=== PATIENT | male | born 1940 | race Caucasian/White ===

== ENCOUNTER 2017-05-29 19:07 | Inpatient (IN) | payer MEDICARE ==
[~2017-05-29] VITALS: Ht 182.9 cm; Wt 100.0 kg
[2017-05-29] VITALS (8 sets, daily range): BP systolic 173–211; BP diastolic 85–110; PULSE 60–77; RESP 13–18; TEMP 96.8–98.2; O2SAT 96–100
[2017-05-29] MEDS ORDERED: IODIXANOL 320 MG/ML 10 ML VIAL (for Rad CT) IVCONTRAST ONE (19:08)
[2017-05-29] MEDS ORDERED: SODIUM CHLOR 0.9% 1000 ML INJ 1,000 ML IV ONE (19:22)
[2017-05-29 19:38] LABS: AUTOMATED NEUTROPHIL # 5.1 TH/MM3 (1.8-7.7); BASOPHIL % 0.4 % (0.0-2.0); EOSINOPHIL # 0.1 TH/MM3 (0-0.4); EOSINOPHIL % 1.5 % (0.0-4.0); HEMATOCRIT 36.7 % (39.0-51.0); HEMOGLOBIN 12.3 GM/DL (13.0-17.0); LYMPH % 18.8 % (9.0-44.0); LYMPHOCYTE # 1.3 TH/MM3 (1.0-4.8); MEAN CELL VOLUME 94.5 FL (80.0-100.0); MEAN CORPUSCULAR HEMOGLOBIN 31.6 PG (27.0-34.0); MEAN CORPUSCULAR HGB CONC 33.4 % (32.0-36.0); MEAN PLATELET VOLUME 8.2 FL (7.0-11.0); MONO % 6.7 % (0.0-8.0); MONOCYTE # 0.5 TH/MM3 (0-0.9); NEUT % 72.6 % (16.0-70.0); PLATELET COUNT 168 TH/MM3 (150-450); RED BLOOD COUNT 3.88 MIL/MM3 (4.50-5.90); RED CELL DISTRIBUTION WIDTH 15.1 % (11.6-17.2)
--- NOTE | 2017-05-29 19:39 | RADRPT ---
EXAM DATE/TIME: 05/29/2017 19:21 [facility] COMPARISON: No previous studies available for comparison. INDICATIONS : Trouble with speech RADIATION DOSE: 56.35 CTDIvol (mGy) MEDICAL HISTORY : Unable to obtain SURGICAL HISTORY : Unable to obtain ENCOUNTER: Initial ACUITY: 1 day PAIN SCALE: 0/10 LOCATION: cranial TECHNIQUE: Multiple contiguous axial images were obtained of the head. Using automated exposure control and adj ustment of the mA and/or kV according to patient size, radiation dose was kept as low as reasonably a chievable to obtain optimal diagnostic quality images. DICOM format image data is available electro nically for review and comparison. FINDINGS: Diffuse cerebral atrophy is noted. Severe periventricular and subcortical white matter small vessel i schemic changes are noted bilaterally. There is no acute infarct, acute hemorrhage, mass effect or ex tra-axial fluid collections. The findings were discussed with Dr. Leon at 7:35 PM on 05/29/17. CONCLUSION: Severe periventricular and subcortical white matter small vessel ischemic changes doug aterally. Diffuse cerebral atrophy. No acute infarct, acute hemorrhage, mass effect or extra axial fl uid collections. The findings were discussed with Dr. Leon at 7:35 PM on 05/29/17. Rhys Wall MD on May 29, 2017 at 19:33 Board Certified Radiologist. This report was verified electronically.
--- NOTE | 2017-05-29 19:47 | PD ---
HPI Chief Complaint: Stroke Alert Time Seen by Provider: 19:46 Travel History International Travel<30 days: No Contact w/Intl Traveler<30days: No Traveled to known affect area: No History of Present Illness HPI 76-year-old male presents to the emergency department by EMS transport from home as noted just prior to EMS arrival while patient was sitting having dinner around 6:30-6:40 PM that patient was staring and was not following commands or speaking and then developed garbled speech. immediately called 911. Upon EMS arrival patient was already showing improvement of speech and following commands. states she did not notice any facial droop or obvious upper or lower extremity weakness and no report of paresthesia. According to the , patient has had several TIAs in the past, has CAD with multiple stents, as well as, PAD with lower extremity stents, as well as, renal artery stenosis with plan for stenting and aortic valve disease with plan for valve replacement. Patient is under the care of providers/physicians at [facility]. Patient's superior court clerk is Dr. Chacon. Patient has renal insufficiency and is followed by cupola melter Dr Murillo. Patient here states that his speech is improved. Perhaps only slight slurring of speech. Patient denies headache visual disturbance difficulty swallowing does not notice any facial numbness or weakness does not report any upper or lower extremity numbness or weakness denies any chest pain or palpitations also denies any shortness of breath. Patient denies any nausea and has had no vomiting. Patient does not report any neck jaw mid scapular abdomen or upper extremity numbness tingling weakness or pain. Patient is prescribed Plavix and aspirin. at bedside at this time reports patient's speech is nearly back to baseline normal. also reports March 2017 patient was hospitalized at [facility] for vomiting and dizziness with extensive neurologic workup cardiac evaluation and nephrology evaluation and had several imaging studies of the neck and brain that were reportedly all within normal. Patient's reports that she is her spouse is power of criminal defense attorney. PFSH Past Medical History Narrative Medical TIA, CAD with several coronary stents PAD with lower extremity stents carotid disease aortic valve disease hypertension and diabetes; no tobacco use; nursing notes reviewed Cardiovascular Problems: Yes (HTN, BAD AORTIC VALVE) Diabetes: Yes Social History Tobacco Use: No Allergies-Medications (Allergen,Severity, Reaction): Coded Allergies: No Known Allergies (Verified Allergy, Unknown, 05/29/17) MRI PRECAUTION (Verified Adverse Reaction, Severe, Pacemaker, not Biotronik or Medtronic. 05/30/17 LRS, 05/30/17) Reported Meds & Prescriptions Reported Meds & Active Scripts Active Reported Gabapentin 300 Mg Cap 300 Mg PO HS Nitrostat SL (Nitroglycerin) 0.4 Mg Subl 0.4 Mg SL DIRECTED PRN 1 tablet under the tongue as needed for chest pain. Repeat every 5 minutes for a total of 3 DOSES or call 911 if NO relief. Aspirin 325 Mg Tab 325 Mg PO DAILY Cetirizine (Cetirizine HCl) 10 Mg Chew 10 Mg CHEW DAILY Meclizine (Meclizine HCl) 25 Mg Tab 25 Mg PO DIRECTED PRN Lisinopril 20 Mg Tab 20 Mg PO DAILY Isosorbide Mononitrate 20 Mg Tab 60 Mg PO DAILY Take 2 doses 7 hours apart. Pantoprazole (Pantoprazole Sodium) 40 Mg Tab 40 Mg PO DAILY Ranexa ER 12 HR (Ranolazine) 500 Mg Tab 500 Mg PO DAILY Lipitor (Atorvastatin Calcium) 40 Mg Tab 40 Mg PO HS Glimepiride 2 Mg Tab 2 Mg PO DAILY Take with breakfast or first main meal Plavix (Clopidogrel Bisulfate) 75 Mg Tab 75 Mg PO DAILY Narrative Medication Plavix, aspirin Review of Systems Except as stated in HPI: all other systems reviewed are Neg General / Constitutional: No: Fever Eyes: No: Visual changes HENT: No: Headaches, Lightheadedness Cardiovascular: No: Chest Pain or Discomfort, Palpitations, Syncope Respiratory: No: Shortness of Breath Gastrointestinal: No: Nausea, Vomiting, Abdominal Pain Genitourinary: No: Flank Pain Musculoskeletal: No: Weakness, Pain Skin: No Rash Neurologic: Positive: Slurred Speech, No: Weakness, Dizziness, Syncope, Focal Abnormalities, Coordination Problem, Headache, Change in Mentation, Paresthesia , Seizures Psychiatric: No: Anxiety Hematologic/Lymphatic: No: Lymph Node Enlargement Physical Exam Narrative GENERAL: Well-developed well-nourished male in no acute distress no respiratory distress resting supine on exam stretcher; GCS 15 SKIN: Warm and dry. HEAD: Atraumatic. Normocephalic. EYES: Pupils equal and round. Extraocular muscles intact. No scleral icterus. No injection or drainage. ENT: No nasal bleeding or discharge. Mucous membranes pink and moist. NECK: Trachea midline. No JVD. Supple no meningismus. CARDIOVASCULAR: Regular rate and rhythm. 3/6 holosystolic murmur. RESPIRATORY: No accessory muscle use. Clear to auscultation. Breath sounds equal bilaterally. GASTROINTESTINAL: Abdomen soft, non-tender, nondistended. Hepatic and splenic margins not palpable. MUSCULOSKELETAL: Extremities without clubbing, cyanosis, or edema. No obvious deformities. Radial pulses 2+ to palpation bilaterally dorsalis pedis pulses 2 + to palpation bilaterally NEUROLOGICAL: Awake and alert. GCS 15. No obvious cranial nerve deficits, no facial droop. Motor grossly within normal limits. Five out of 5 muscle strength in the arms and legs. No pronator drift. No limb ataxia. Slight slurring of speech. PSYCHIATRIC: Appropriate mood and affect; insight and judgment normal. Data Data Last Documented VS Vital Signs Date Time Temp Pulse Resp B/P (MAP) Pulse Ox O2 Delivery O2 Flow Rate FiO2 05/29/17 20:48 60 15 173/85 (114) 97 Room Air 05/29/17 20:26 21 05/29/17 19:23 98.2 Orders Orders Activity Bed Rest (05/29/17 ) Electrocardiogram (05/29/17 ) I-Stat Profile (05/29/17 19:22) Prothrombin Time / Inr (Pt) (05/29/17 19:22) Act Partial Throm Time (Ptt) (05/29/17 19:22) Complete Blood Count With Diff (05/29/17 19:22) Fibrinogen (05/29/17 19:22) Creatine Kinase (Cpk) (05/29/17 19:22) Troponin I (05/29/17 19:22) Ua Includes Microscopic (05/29/17 19:22) Drug Screen, Random Urine (05/29/17 19:22) Type And Screen (05/29/17 19:22) Ct Brain W/O Iv Contrast(Rout) (05/29/17 ) Cta Brain W Iv Contrast W 3d (05/29/17 19:22) Cta Neck W Iv Contrast W 3d (05/29/17 19:22) Consult Neurology (05/29/17 ) Blood Glucose (05/29/17 19:22) Ecg Monitoring (05/29/17 19:22) Neuro Checks Q2HX12,Q4H (05/29/17 19:22) Nursing Bedside Swallow Assess .ONCE (05/29/17 19:22) Iv Access Insert/Monitor (05/29/17 19:22) NPO (05/29/17 19:22) Oximetry (05/29/17 19:22) Resp Oxygen Nc Stroke (05/29/17 ) Sodium Chlor 0.9% 1000 Ml Inj (Ns 1000 M (05/29/17 19:22) Cath For Specimen (05/29/17 19:22) Chest, Single Ap (05/29/17 ) Iodixanol 320 Inj (Rad Ct) (Visipaque 32 (05/29/17 19:08) Sodium Chlor 0.9% 1000 Ml Inj (Ns 1000 M (05/29/17 20:30) Head Of Bed (05/29/17 20:16) (Hub Use Only)Inp Phy Cons/Ref (05/29/17 ) Heparin-D5w 25,000 U/250 Ml (Heparin-D5w (05/29/17 21:00) Cbc No Diff, Includes Plts (06/01/17 06:00) Admit Order (Ed Use Only) (05/29/17 ) Ring Stamper / Telemetry LORELEI.Q8H (05/29/17 21:16) Activity Bed Rest (05/29/17 21:16) Notify Dr: Other (05/29/17 21:16) ^ For Further Orders (05/29/17 21:16) Labs Laboratory Tests Test 05/29/17 19:15 White Blood Count 7.0 TH/MM3 Red Blood Count 3.88 MIL/MM3 Hemoglobin 12.3 GM/DL Bedside Hemoglobin 12.6 G/DL Hematocrit 36.7 % Bedside Hematocrit 37.0 % Mean Corpuscular Volume 94.5 FL Mean Corpuscular Hemoglobin 31.6 PG Mean Corpuscular Hemoglobin Concent 33.4 % Red Cell Distribution Width 15.1 % Platelet Count 168 TH/MM3 Mean Platelet Volume 8.2 FL Neutrophils (%) (Auto) 72.6 % Lymphocytes (%) (Auto) 18.8 % Monocytes (%) (Auto) 6.7 % Eosinophils (%) (Auto) 1.5 % Basophils (%) (Auto) 0.4 % Neutrophils # (Auto) 5.1 TH/MM3 Lymphocytes # (Auto) 1.3 TH/MM3 Monocytes # (Auto) 0.5 TH/MM3 Eosinophils # (Auto) 0.1 TH/MM3 Basophils # (Auto) 0.0 TH/MM3 CBC Comment DIFF FINAL Differential Comment Prothrombin Time 12.0 SEC Prothromb Time International Ratio 1.2 RATIO Activated Partial Thromboplast Time 28.6 SEC Fibrinogen 413 mg/dL Bedside Sodium 141 MMOL/L Bedside Potassium 3.9 MMOL/L Bedside Chloride 105 MMOL/L Bedside Blood Urea Nitrogen 29 MG/DL Bedside Creatinine 2.0 MG/DL Bedside Glucose 107 MG/DL Total Creatine Kinase 66 U/L Troponin I 0.02 NG/ML MDM Medical Decision Making Medical Screen Exam Complete: Yes Emergency Medical Condition: Yes Medical Record Reviewed: Yes Interpretation(s) EKG normal sinus rhythm rate [address] elevation or ectopy or injury pattern CBC & BMP Diagram 05/29/17 19:15 Vital Signs Date Time Temp Pulse Resp B/P (MAP) Pulse Ox O2 Delivery O2 Flow Rate FiO2 05/29/17 20:48 60 15 173/85 (114) 97 Room Air 05/29/17 20:26 96 21 05/29/17 20:20 68 13 188/97 (127) 98 Room Air 05/29/17 20:09 68 13 211/110 (143) 98 Room Air 05/29/17 19:33 67 16 197/93 (127) 97 Room Air 05/29/17 19:32 17 98 Room Air 05/29/17 19:30 77 17 98 Room Air 05/29/17 19:23 98.2 77 17 199/91 (127) 98 CT brain w/o: CONCLUSION: Severe periventricular and subcortical white matter small vessel ischemic changes bilaterally. Diffuse cerebral atrophy. No acute infarct, acute hemorrhage, mass effect or extra axial fluid collections. The findings were discussed with Dr. Leon at 7:35 PM on 05/29/17. Rhys Wall MD on May 29, 2017 at 19:33 Board Certified Radiologist. This report was verified electronically. CTA brain: CONCLUSION: No acute disease. Rhys Wall MD on May 29, 2017 at 19:52 Board Certified Radiologist. This report was verified electronically. CTA neck: CONCLUSION: 1. Severe focal stenosis involving the left mid common carotid artery. 2. Bilateral carotid stents are widely patent. Rhys Wall MD on May 29, 2017 at 20:17 Board Certified Radiologist. This report was verified electronically. Differential Diagnosis Stroke alert, CVA, TIA, arrhythmia, ICH, uncontrolled hypertension, ACS Narrative Course @ 19:12 NIHSS: 1 @ 19:[address] @ 19:[address] Leon @ 19:46 patient has returned from CT; NIHSS: 0 @ 8:22 LUE: 188/91; RUE: 185/86; chronic LBP 6-7/[address] Leon notified of CTa results --no plavix, no aspirin, start heparin infusion, no bolus; hold bp meds for bp less than 200/100, am neuro consult, MRI brain w/o contrast Physician Communication Physician Communication discussed with Neurologist Dr Leon not tPA candidate may require heparinization add CTA brain/neck to CT brain w/o; @ 7:[address] Wall neg CT brain w/o and has shred this already with Dr Leon proceeding with CTA Diagnosis Primary Impression: TIA (transient ischemic attack) Qualified Codes: G45.9 - Transient cerebral ischemic attack, unspecified Additional Impressions: Renal insufficiency History of coronary artery disease Admitting Information Admitting Physician Requests: Admit Isha Ventura MD May 29, 2017 19:47
[2017-05-29 19:53] LABS: INTERNATIONAL NORMALIZED RATIO 1.2 RATIO
--- NOTE | 2017-05-29 19:56 | RADRPT ---
EXAM DATE/TIME: 05/29/2017 19:34 [facility] COMPARISON: No previous studies available for comparison. INDICATIONS : Trouble with speech IV CONTRAST: 50 cc Visipaque (iodixanol) IV ; Cumulative dose for multiple exams. RADIATION DOSE: 10.92 CTDIvol (mGy) ; Combined studies MEDICAL HISTORY : Unable to obtain SURGICAL HISTORY : Unable to obtain ENCOUNTER: Initial ACUITY: 1 day PAIN SCALE: 0/10 LOCATION: Cta head TECHNIQUE: Volumetric scanning was performed using a multi-row detector CT scanner. The data was post processed with a variety of visualization algorithms including full volume maximum intensity projection, multi -planar sliding thin slab reformation, curved planar reformation, and surface rendering techniques. Using automated exposure control and adjustment of the mA and/or kV according to patient size, radiat ion dose was kept as low as reasonably achievable to obtain optimal diagnostic quality images. DICO M format image data is available electronically for review and comparison. FINDINGS: There is excellent visualization of the major intracranial arteries out to the second-order branch ve ssels. There is no evidence for aneurysm, vessel truncation or stenosis, and no evidence for vascula r malformation. There is a patent right posterior communicating artery. CONCLUSION: No acute disease. Rhys Wall MD on May 29, 2017 at 19:52 Board Certified Radiologist. This report was verified electronically.
[2017-05-29 20:05] LABS: TROPONIN I 0.02 NG/ML (0.02-0.05)
[2017-05-29] MEDS ORDERED: PANT40TA3 PO (20:08)
[2017-05-29] MEDS ORDERED: NITR0.4S SL (20:08)
[2017-05-29] MEDS ORDERED: GLIM2TAB PO (20:08)
[2017-05-29] MEDS ORDERED: ASPI-183 PO (20:08)
[2017-05-29] MEDS ORDERED: MECL-62 PO (20:08)
[2017-05-29] MEDS ORDERED: GABA300C5 PO (20:08)
[2017-05-29] MEDS ORDERED: CETI10CH CHEW (20:08)
[2017-05-29] MEDS ORDERED: LISI-515 PO (20:08)
[2017-05-29] MEDS ORDERED: LIPI40TA PO (20:08)
[2017-05-29] MEDS ORDERED: RANO500 PO (20:08)
[2017-05-29] MEDS ORDERED: ISOS20TA PO (20:08)
[2017-05-29] MEDS ORDERED: PLAV75TA29 PO (20:08)
--- NOTE | 2017-05-29 20:24 | RADRPT ---
EXAM DATE/TIME: 05/29/2017 19:34 [facility] COMPARISON: No previous studies available for comparison. INDICATIONS : Trouble with speech IV CONTRAST: 50 cc Visipaque (iodixanol) IV ; Cumulative dose for multiple exams. RADIATION DOSE: 10.92 CTDIvol (mGy) ; Combined studies MEDICAL HISTORY : Unable to obtain SURGICAL HISTORY : Unable to obtain ENCOUNTER: Initial ACUITY: 1 day PAIN SCALE: 0/10 LOCATION: Cta neck Elevated flow velocities and ICA/CCA ratios have been found to correlate with increased degrees of vessel stenosis, calculated as percentage of diameter relative to a normal segment of distal ICA/CCA. TECHNIQUE: Volumetric scanning was performed using a multirow detector CT scanner. The data was post processed with a variety of visualization algorithms including full-volume maximum intensity projection, multip lanar sliding thin-slab reformation, curved-planar reformation, and surface-rendering techniques. Us ing automated exposure control and adjustment of the mA and/or kV according to patient size, radiatio n dose was kept as low as reasonably achievable to obtain optimal diagnostic quality images. DICOM f ormat image data is available electronically for review and comparison. FINDINGS: AORTIC ARCH: There is a three-vessel origin of the great vessels from the aorta. No evidence of ostial narrowing. RIGHT CAROTID: The common carotid artery is intact. The carotid bulb has a normal configuration without ulceration o r narrowing. Right-sided carotid stent is noted within the internal carotid artery without recurrent stenosis. The external carotid artery is intact. LEFT CAROTID: There appears to be a severe focal stenosis within the left mid common carotid artery. Left-sided car otid stent is noted within the proximal internal carotid artery with no recurrent stenosis. The carot id bulb has a normal configuration without ulceration or narrowing. The external carotid artery is i ntact. VERTEBRALS: The vertebral arteries have a symmetric diameter. No stenotic lesions are seen. CONCLUSION: 1. Severe focal stenosis involving the left mid common carotid artery. 2. Bilateral carotid stents are widely patent. Rhys Wall MD on May 29, 2017 at 20:17 Board Certified Radiologist. This report was verified electronically.
[2017-05-29] MEDS: SODIUM CHLOR 0.9% 1000 ML INJ 1,000 ML IV SCH (20:30)
[2017-05-29] MEDS ORDERED: HEPARIN-D5W 25,000 U/250 ML 250 ML IV PRN (21:00)
--- NOTE | 2017-05-29 21:08 | RADRPT ---
EXAM DATE/TIME: 05/29/2017 20:00 [facility] COMPARISON: No previous studies available for comparison. INDICATIONS : Dizziness, stroke alert. MEDICAL HISTORY : None. SURGICAL HISTORY : CABG. Pacemaker. ENCOUNTER: Initial ACUITY: 1 day PAIN SCORE: 0/10 LOCATION: Bilateral chest FINDINGS: Median sternotomy wires are noted status post cardiac surgery. Left perihilar infiltrate is noted. Th e right lung is clear. The heart is mildly prominent. Left subclavian dual lead pacemaker has its tip s in right atrium and right ventricle. No pneumothorax is noted. CONCLUSION: 1. Left perihilar infiltrate. 2. Cardiomegaly. Rhys Wall MD on May 29, 2017 at 21:05 Board Certified Radiologist. This report was verified electronically.
--- NOTE | 2017-05-29 21:21 | HHI.HP ---
[facility] Carson Chacon MD Admission Diagnosis stroke alert; tia Diagnoses: (1) CVA (cerebral vascular accident) Diagnosis: Principal (2) Renal insufficiency Diagnosis: Principal (3) HTN (hypertension) Diagnosis: Principal (4) DM (diabetes mellitus) Diagnosis: Principal Travel History International Travel<30 Days: No Contact w/Intl Traveler <30 Da: No Traveled to Known Affected Are: No History of Present Illness This is a 76-year-old male with PMH of HTN, CAD, TIA, Aortic Valve Stenosis pending AVR, DM and CKD who was brought to the ER by EMS as a Stroke Alert. Per , they were having dinner when pt had acute episode of dysarthria and garbled speech. No reported facial droop or weakness per . Previous h/o similar episodes in the past w/ TIAs. states speech almost back to baseline. On arrival, BP 188/97, HR 68, O2 sat 98% on RA, Afebrile. CBC essentially unremarkable. Creatinine 2.0, labs for comparison. CT Head with severe periventricular and subcortical white matter disease, no acute infarct or hemorrhage noted. CXR with left perihilar infiltrate. CTA Head with no acute findings. CTA Neck severe focal stenosis of left mid common carotid artery. Dr. Leon consulted by ER physician, pt not TPA candidate, recommended Heparin gtt for anticoagulation. Pt follows w/ Termite Renewal Inspector Dr. Chacon and Fruit And Vegetable Packer Dr. Murillo. Review of Systems Except as stated in HPI: all other systems reviewed are Neg ROS: 14 point review of systems otherwise negative. Past Family Social History Past Medical History PMH: HTN, CAD, TIA, Aortic Valve Stenosis pending AVR, DM and CKD Past Surgical History PAST SURGICAL HISTORY: Cholecystectomy, Cardiac Stent Allergies: Coded Allergies: No Known Allergies (Verified Allergy, Unknown, 05/29/17) Family History PAST FAMILY HISTORY: Reviewed. No h/o DM or CAD Social History PAST SOCIAL HISTORY: Negative for alcohol, tobacco or drugs. Physical Exam Vital Signs Vital Signs Date Time Temp Pulse Resp B/P (MAP) Pulse Ox O2 Delivery O2 Flow Rate FiO2 05/29/17 20:48 60 15 173/85 (114) 97 Room Air 05/29/17 20:26 96 21 05/29/17 20:20 68 13 188/97 (127) 98 Room Air 05/29/17 20:09 68 13 211/110 (143) 98 Room Air 05/29/17 19:33 67 16 197/93 (127) 97 Room Air 05/29/17 19:32 17 98 Room Air 05/29/17 19:30 77 17 98 Room Air 05/29/17 19:23 98.2 77 17 199/91 (127) 98 Physical Exam PE: GENERAL: Pleasant elderly white male in no acute distress. at bedside HEENT: PERRLA, EOMI. No scleral icterus or conjunctival pallor. No lid lag or facial droop. Mild slurring of speech CARDIOVASCULAR: Regular rate and rhythm. No obvious murmurs to auscultation. No chest tenderness to palpation. RESPIRATORY: No obvious rhonchi or wheezing. Clear to auscultation. Breath sounds equal bilaterally. GASTROINTESTINAL: Abdomen soft, non-tender, nondistended. BS normal. MUSCULOSKELETAL: Extremities without clubbing, cyanosis, or edema. No obvious deformities. NEUROLOGICAL: Awake, alert and oriented x4. No focal neurologic deficits. Moving both upper and lower extremities spontaneously. Laboratory Laboratory Tests Test 05/29/17 19:15 White Blood Count 7.0 Red Blood Count 3.88 Hemoglobin 12.3 Bedside Hemoglobin 12.6 Hematocrit 36.7 Bedside Hematocrit 37.0 Mean Corpuscular Volume 94.5 Mean Corpuscular Hemoglobin 31.6 Mean Corpuscular Hemoglobin Concent 33.4 Red Cell Distribution Width 15.1 Platelet Count 168 Mean Platelet Volume 8.2 Neutrophils (%) (Auto) 72.6 Lymphocytes (%) (Auto) 18.8 Monocytes (%) (Auto) 6.7 Eosinophils (%) (Auto) 1.5 Basophils (%) (Auto) 0.4 Neutrophils # (Auto) 5.1 Lymphocytes # (Auto) 1.3 Monocytes # (Auto) 0.5 Eosinophils # (Auto) 0.1 Basophils # (Auto) 0.0 CBC Comment DIFF FINAL Differential Comment Prothrombin Time 12.0 Prothromb Time International Ratio 1.2 Activated Partial Thromboplast Time 28.6 Fibrinogen 413 Bedside Sodium 141 Bedside Potassium 3.9 Bedside Chloride 105 Bedside Blood Urea Nitrogen 29 Bedside Creatinine 2.0 Bedside Glucose 107 Total Creatine Kinase 66 Troponin I 0.02 Result Diagram: 05/29/171914 Caprini VTE Risk Assessment Caprini VTE Risk Assessment: Mod/High Risk (score >= 2) Caprini Risk Assessment Model Point Value = 1 Point Value = 2 Point Value = 3 Point Value = 5 Age 41-60 Minor surgery BMI > 25 kg/m2 Swollen legs Varicose veins or History of unexplained or recurrent spontaneous Oral contraceptives or hormone replacement Sepsis (< 1 month) Serious lung disease, including pneumonia (< 1 month) Abnormal pulmonary function Acute myocardial infarction Congestive heart failure (< 1 month) History of inflammatory bowel disease Medical patient at bed rest Age 61-74 Arthroscopic surgery Major open surgery (> 45 min) Laparoscopic surgery (> 45 min) Malignancy Confined to bed (> 72 hours) Immobilizing plaster cast Central venous access Age >= 75 History of VTE Family history of VTE Factor V Leiden Prothrombin [id number] Lupus anticoagulant Anticardiolipin antibodies Elevated serum homocysteine Heparin-induced thrombocytopenia Other congenital or acquired thrombophilia Stroke (< 1 month) Elective arthroplasty Hip, pelvis, or leg fracture Acute spinal cord injury (< 1 month) Prophylaxis Regimen Total Risk Factor Score Risk Level Prophylaxis Regimen 0-1 Low Early ambulation 2 Moderate Order ONE of the following: *Sequential Compression Device (SCD) *Heparin 5000 units SQ BID 3-4 Higher Order ONE of the following medications: *Heparin 5000 units SQ TID *Enoxaparin/Lovenox 40 mg SQ daily (WT < 150 kg, CrCl > 30 mL/min) *Enoxaparin/Lovenox 30 mg SQ daily (WT < 150 kg, CrCl > 10-29 mL/min) *Enoxaparin/Lovenox 30 mg SQ BID (WT < 150 kg, CrCl > 30 mL/min) AND/OR *Sequential Compression Device (SCD) 5 or more Highest Order ONE of the following medications: *Heparin 5000 units SQ TID (Preferred with Epidurals) *Enoxaparin/Lovenox 40 mg SQ daily (WT < 150 kg, CrCl > 30 mL/min) *Enoxaparin/Lovenox 30 mg SQ daily (WT < 150 kg, CrCl > 10-29 mL/min) *Enoxaparin/Lovenox 30 mg SQ BID (WT < 150 kg, CrCl > 30 mL/min) AND *Sequential Compression Device (SCD) Assessment and Plan Problem List: (1) CVA (cerebral vascular accident) ICD Code: I63.9 - Cerebral infarction, unspecified (2) Renal insufficiency ICD Code: N28.9 - Disorder of kidney and ureter, unspecified (3) HTN (hypertension) ICD Code: I10 - Essential (primary) hypertension (4) DM (diabetes mellitus) ICD Code: E11.9 - Type 2 diabetes mellitus without complications Assessment and Plan A/P: 1. CVA: acute onset of dysarthria/garbled speech, symptoms improved. CT Head w/ no acute stroke, CTA Head negative, CTA Neck with severe focal stenosis involving left mid common carotid artery. Vascular Sx eval for possible intervention. Dr. Leon consulted, not TPA candidate, recommended Heparin gtt. Keep NPO, HOB flat, IVF, Neuro Cheks, Check Echo to eval for possible thromboembolic event. Telemetry. Check Lipid Profile, Hgb A1c. 2. HTN: Uncontrolled. BP 180's, however in light of CVA will allow for permissive HTN. Antihypertensives prn for systolic >220. Monitor BP closely. 3. Renal Insufficiency: Chronic. Baseline unknown. Creatinine 2.0. Follows w/ Dr. Murillo as outpatient, will consult if needed for further evaluation. Monitor I/O. Repeat labs in am. 4. DVT Prophylaxis: Heparin gtt 5. adoption social worker DC planning as needed. 6. Case discussed at length with ER physician, labs/records/imaging reviewed by me. Physician Certification 2 Midnight Certification Type: Admission for Inpatient Services Order for Inpatient Services The services are ordered in accordance with Medicare regulations or non- Medicare payer requirements, as applicable. In the case of services not specified as inpatient-only, they are appropriately provided as inpatient services in accordance with the 2-midnight benchmark. Estimated LOS (days): 2 days is the estimated time the patient will need to remain in the hospital, assuming treatment plan goals are met and no additional complications. Post-Hospital Plan: Not yet determined Bibi Alcazar MD May 29, 2017 21:21
[2017-05-29] MEDS ORDERED: GLUCAGON 1 MG/ML VIAL OTHER PRN (21:30)
[2017-05-29] MEDS ORDERED: DEXTROSE 50% IN WATER 50 ML VIAL(D50) IV PUSH PRN (21:30)
[2017-05-29] MEDS ORDERED: SODIUM CHLORIDE 0.9% FLUSH 10 ML FLUSH IV FLUSH PRN (21:30)
[2017-05-29] MEDS ORDERED: MORPHINE SULFATE 2 MG/ML INJ IV PUSH ONE (22:00)
[2017-05-29] MEDS ORDERED: ONDANSETRON HCL 4 MG/2 ML VIAL IV PUSH ONE (22:00)
[2017-05-30 00:19] VITALS: BP 210/88
[2017-05-30 03:45] VITALS: BP 191/74; PULSE 66; RESP 18; TEMP 96.9; O2SAT 99
[2017-05-30 06:12] LABS: CHOLESTEROL 98 MG/DL (120-200); TRIGLYCERIDES 58 MG/DL (42-150)
[2017-05-30 06:15] LABS: CHOLESTEROL/ HDL RATIO 1.88 RATIO; LDL CHOLESTEROL 34 MG/DL (0-99)
[2017-05-30 08:00] VITALS: BP 211/100; PULSE 68; RESP 18; TEMP 96.6; O2SAT 98
[2017-05-30] MEDS: INSULIN ASPART SUPPLEMENTAL SCALE SQ SCH ×4 (08:00→21:00)
[2017-05-30] MEDS: SODIUM CHLORIDE 0.9% FLUSH 10 ML FLUSH IV FLUSH SCH ×2 (09:00→22:28)
--- NOTE | 2017-05-30 09:52 | PD.CONS ---
History of Present Illness Service Neurology Consult Requested By medicine Reason for Consult tia Primary Care Physician Carson Chacon MD History of Present Illness History of Present Illness This is a 76-year-old male with PMH of HTN, CAD, TIA, Aortic Valve Stenosis pending AVR, DM and CKD who was brought to the ER by EMS as a Stroke Alert. Pt admitted for acute dysarthria last night while eating dinner with his . The episode resolved to baseline with regard to speech within hours. He notes multiple similar TIA symptoms in the past but never this severe. He is followed by Dr. Chacon and Dr. Salas, is on plavix and low dose aspirin. Pt states that he is likely to require further peripheral artery stenting in the near future. CT brain with naicp, small vessel ischemic dz noted. Also had CTA neck with severe left common carotid stenosis. Glucose 107, LDL 34 Review of Systems Except as stated in HPI: all other systems reviewed are Neg Past Family Social History Past Medical History PMH: HTN, CAD, TIA, Aortic Valve Stenosis pending AVR, DM and CKD Past Surgical History PAST SURGICAL HISTORY: Cholecystectomy, Cardiac Catheterization and Stenting Allergies: Coded Allergies: No Known Allergies Family History PAST FAMILY HISTORY: Heart disease Social History PAST SOCIAL HISTORY: Negative for alcohol, tobacco or drugs. , lives locally. (Jose Willis) Past Family Social History Allergies: Coded Allergies: No Known Allergies (Verified Allergy, Unknown, 05/29/17) MRI PRECAUTION (Verified Adverse Reaction, Severe, Pacemaker, not Biotronik or Medtronic. 05/30/17 LRS, 05/30/17) Active Ordered Medications Current Medications Medications (Trade) Dose Ordered Sig/Carlee Route Start Time Stop Time Status Last Admin Sodium Chloride 1,000 ml @ 70 mls/hr [id number] IV 05/29/17 20:30 Heparin Sodium/ Dextrose 250 ml @ 12 mls/hr TITRATE PRN IV 05/29/17 21:00 05/29/17 21:10 (NS Flush) 2 ml BID IV FLUSH 05/30/17 09:00 (NS Flush) 2 ml UNSCH PRN IV FLUSH 05/29/17 21:30 (Vasotec Inj) 1.25 mg Q4H PRN IV PUSH 05/29/17 21:30 (Pravachol) 40 mg HS PO 05/30/17 21:00 (NovoLOG SUPPLEMENTAL SCALE) 1 ACHS SQ 05/30/17 08:00 (D50w (Vial) Inj) 50 ml UNSCH PRN IV PUSH 05/29/17 21:30 (Glucagon Inj) 1 mg UNSCH PRN OTHER 05/29/17 21:30 (Jose Willis) Exam I&O / VS Vital Signs Date Time Temp Pulse Resp B/P (MAP) Pulse Ox O2 Delivery O2 Flow Rate FiO2 05/30/17 08:00 96.6 68 18 211/100 (137) 98 05/30/17 03:45 96.9 66 18 191/74 (113) 99 05/30/17 00:19 210/88 (128) 05/29/17 22:27 96.8 71 18 205/106 (139) 100 05/29/17 22:13 05/29/17 20:48 60 15 173/85 (114) 97 Room Air 05/29/17 20:26 96 21 05/29/17 20:20 68 13 188/97 (127) 98 Room Air 05/29/17 20:09 68 13 211/110 (143) 98 Room Air 05/29/17 19:33 67 16 197/93 (127) 97 Room Air 05/29/17 19:32 17 98 Room Air 05/29/17 19:30 77 17 98 Room Air 05/29/17 19:23 98.2 77 17 199/91 (127) 98 General: Alert and Oriented, No acute distress Eye: PERRL, EOMI Respiratory: Non-labored respirations, Symmetrical expansion Cardiology: Normal rate Neurologic: Alert, Oriented, CN II-XII intact, Normal DTR's Psychiatric: Cooperative, Appropriate mood & affect, Normal judgement Exam Comments follows commands, a&o x3, no dysmetria, no drift, strength full and equal throughout extremities, speech is fluent, mild decreased temp and pain sensation in RLE (Jose Willis) Review/Management Diagnosis/Plan: (1) Left carotid artery stenosis ICD Codes: I65.22 - Occlusion and stenosis of left carotid artery Status: Acute Plan: Consult CV surgery Pt is on heparin at this time (2) TIA (transient ischemic attack) ICD Codes: G45.9 - Transient cerebral ischemic attack, unspecified Status: Acute Plan: CT brain was NAICP CTA head and neck reviewed, severe left common carotid stenosis Pt is on statin with LDL in 30s EEG pending (3) History of coronary artery disease ICD Codes: Z86.79 - Personal history of other diseases of the circulatory system Status: Chronic Plan: on plavix and aspirin, hx of stenting (4) Renal insufficiency ICD Codes: N28.9 - Disorder of kidney and ureter, unspecified Status: Acute Plan: monitor s/p angiograms, followed by Dr. Murillo (5) HTN (hypertension) ICD Codes: I10 - Essential (primary) hypertension Status: Chronic Plan: permissible htn acutely monitor parameters (Jose Willis) Daily Summary d/w PA agree with above (Juan Manuel Verma MD) Problem Qualifiers (1) TIA (transient ischemic attack): Qualified Codes: G45.9 - Transient cerebral ischemic attack, unspecified Jose Willis May 30, 2017 09:52 Juan Manuel Verma MD May 31, 2017 08:22
--- NOTE | 2017-05-30 09:56 | HHI.PR ---
Subjective Remarks Follow-up for TIA Patient feels better, dysarthria/garbled speech resolved. No numbness, lightheadedness, or focal weakness. Denies any headache cough or shortness of breath. Objective Vitals Vital Signs Date Time Temp Pulse Resp B/P (MAP) Pulse Ox O2 Delivery O2 Flow Rate FiO2 05/30/17 08:00 96.6 68 18 211/100 (137) 98 05/30/17 03:45 96.9 66 18 191/74 (113) 99 05/30/17 00:19 210/88 (128) 05/29/17 22:27 96.8 71 18 205/106 (139) 100 05/29/17 22:13 05/29/17 20:48 60 15 173/85 (114) 97 Room Air 05/29/17 20:26 96 21 05/29/17 20:20 68 13 188/97 (127) 98 Room Air 05/29/17 20:09 68 13 211/110 (143) 98 Room Air 05/29/17 19:33 67 16 197/93 (127) 97 Room Air 05/29/17 19:32 17 98 Room Air 05/29/17 19:30 77 17 98 Room Air 05/29/17 19:23 98.2 77 17 199/91 (127) 98 I/O 05/29/17 05/29/17 05/29/17 05/30/17 05/30/17 05/30/17 07:00 15:00 23:00 07:00 15:00 23:00 Intake Total 240 ml Balance 240 ml Intake Oral 240 ml # Voids 1 # Bowel Movements 0 Result Diagram: 05/29/171914 Objective Remarks GENERAL: Pleasant elderly white male in no acute distress. HEENT: PERRLA, EOMI. No scleral icterus or conjunctival pallor. No slurring of speech. CARDIOVASCULAR: Positive for musical murmur, irregular rhythm, normal rate. RESPIRATORY: No obvious rhonchi or wheezing. Clear to auscultation. Breath sounds equal bilaterally. GASTROINTESTINAL: Abdomen soft, non-tender, nondistended. BS normal. MUSCULOSKELETAL: Extremities without clubbing, cyanosis, or edema. No obvious deformities. NEUROLOGICAL: Awake, alert and oriented x4. No cranial nerve deficits. No focal deficits, moves upper extremities and lower extremities without any weakness. A/P Problem List: (1) CVA (cerebral vascular accident) ICD Code: I63.9 - Cerebral infarction, unspecified (2) Renal insufficiency ICD Code: N28.9 - Disorder of kidney and ureter, unspecified (3) HTN (hypertension) ICD Code: I10 - Essential (primary) hypertension Status: Chronic (4) DM (diabetes mellitus) ICD Code: E11.9 - Type 2 diabetes mellitus without complications Assessment and Plan This is a 76-year-old male with history of hypertension, chronic kidney disease stage IV presenting with garbled speech. TIA, rule out CVA, with left carotid stenosis-acute onset of dysarthria/garbled speech, symptoms improved. CT Head w/ no acute stroke, CTA Head negative, CTA Neck with severe focal stenosis involving left mid common carotid artery. Vascular surgery consulted. Neurology has seen the patient. Continue heparin, keep nothing by mouth, keep head of the bed flat. Continue neurochecks, follow- up echocardiogram. LDL 34. Follow-up EEG. Continue statins. HTN: Uncontrolled. BP 180's, for now permissive HTN. Antihypertensives prn for systolic >220. Monitor BP closely. Chest x-ray shows left infiltrate-patient is asymptomatic, monitor for now. CKD St. IV Baseline unknown. Creatinine 2.0. Follows w/ Dr. Murillo as outpatient, will consult if needed for further evaluation. Monitor BMP in the morning. DVT Prophylaxis: Heparin gtt Dre Stratton MD May 30, 2017 09:56
[2017-05-30] MEDS: SODIUM CHLOR 0.9% 1000 ML INJ 1,000 ML IV SCH (10:48)
--- NOTE | 2017-05-30 11:35 | PD.CAR.PN ---
CVT Progress Note Subjective/Hospital Course: Referral received Full consult dictated Thanks J Objective: Vital Signs Date Time Temp Pulse Resp B/P (MAP) Pulse Ox O2 Delivery O2 Flow Rate FiO2 05/30/17 08:00 96.6 68 18 211/100 (137) 98 05/30/17 03:45 96.9 66 18 191/74 (113) 99 05/30/17 00:19 210/88 (128) 05/29/17 22:27 96.8 71 18 205/106 (139) 100 05/29/17 22:13 05/29/17 20:48 60 15 173/85 (114) 97 Room Air 05/29/17 20:26 96 21 05/29/17 20:20 68 13 188/97 (127) 98 Room Air 05/29/17 20:09 68 13 211/110 (143) 98 Room Air 05/29/17 19:33 67 16 197/93 (127) 97 Room Air 05/29/17 19:32 17 98 Room Air 05/29/17 19:30 77 17 98 Room Air 05/29/17 19:23 98.2 77 17 199/91 (127) 98 Labs: Laboratory Tests Test 05/30/17 05:30 Activated Partial Thromboplast Time 52.6 SEC (24.3-30.1) Triglycerides Level 58 MG/DL (42-150) Cholesterol Level 98 MG/DL (120-200) LDL Cholesterol 34 MG/DL (0-99) HDL Cholesterol 52.0 MG/DL (40.0-60.0) Cholesterol/HDL Ratio 1.88 RATIO Result Diagram: 05/29/171914 Jin Winston MD May 30, 2017 11:35
[2017-05-30 11:39] VITALS: BP 230/102; PULSE 74; RESP 18; TEMP 96.9; O2SAT 99
[2017-05-30] MEDS: ENALAPRILAT 1.25 MG/ML VIAL IV PUSH PRN ×2 (12:06→17:23)
--- NOTE | 2017-05-30 13:17 | RADRPT ---
EXAM DATE/TIME: 05/30/2017 11:02 [facility] COMPARISON: No previous studies available for comparison. INDICATIONS : Cerebrovascular accident. MEDICAL HISTORY : Hypertension. Diabetes. Esophageal cancer. Arthritis. SURGICAL HISTORY : CABG. Cholecystectomy. Pacemaker. Carotid stent. Cardiac catheterization. ENCOUNTER: Initial ACUITY: 1 day PAIN SCORE: 0/10 LOCATION: Bilateral neck PEAK SYSTOLIC VELOCITIES (cm/sec): ICA/CCA RATIO: Right: 1.9 Left: 1.4 ICA: Right: 120 Left: 106 CCA: Right: 64 Left: 79 ECA: Right: 127 Left: 93 VERTEBRAL: Right: 72 antegrade Left: 38 antegrade Elevated flow velocities and ICA/CCA ratios have been found to correlate with increased degrees of vessel stenosis, calculated as percentage of diameter relative to a normal segment of distal ICA/CCA FINDINGS: RIGHT CAROTID: No significant stenosis is visualized. Mild plaque. Stent within the internal carotid artery. The wav eforms are within normal limits. LEFT CAROTID: No significant stenosis is visualized. Mild plaque. Stent within the internal carotid artery. The wa veforms are within normal limits. VERTEBRAL ARTERIES: Antegrade flow is seen in both vertebral arteries. MISCELLANEOUS: None. CONCLUSION: 1. Velocity/ratios suggests 50% stenosis within the right internal carotid artery. 2. No hemodynamically significant stenosis within the left carotid artery. Ezekiel Crowley MD on May 30, 2017 at 13:13 Board Certified Radiologist. This report was verified electronically.
--- NOTE | 2017-05-30 15:06 | MG ---
cc: PUMA GAN MD Lab No: [id number] Date: 05/30/2017 : 1940 Sex: M INDICATION A 76-year-old with history of speech changes. DESCRIPTION Increased myogenic fast frequency artifact noted in the frontal channels. 6-7 Hz posterior rhythm. Attenuation of background. Good EEG variability and reactivity with significant amount of myogenic and electrical artifact noted in the frontal channels. Reduced driving with photic stimulation towards the first half of the recording. INTERPRETATION Slow alpha variant drowsy EEG with moderate amount of artifact. Clinical correlation. Puma Gan MD MG/BT /2:38 PM /2:59 PM
[2017-05-30 15:53] LABS: HEMOGLOBIN A1C 5.4 % (4.3-6.0)
[2017-05-30 16:00] VITALS: BP 223/105; PULSE 76; RESP 18; TEMP 98.3; O2SAT 96
--- NOTE | 2017-05-30 16:44 | MB ---
cc: JIN BUTLER MD DATE OF CONSULTATION 05/30/17 REASON FOR CONSULTATION Left internal common carotid artery stenosis. HISTORY OF PRESENT ILLNESS This 76-year-old gentleman with extensive medical and surgical history apparently noted during dinner last night that he became dysarthric and started slurring his speech. The patient apparently had similar episodes in the past and was quickly transferred to the emergency room where he was worked up and now admitted. DICTATION INTERRUPTED There is a new document dictation Jin TOMLINSON/ /4:26 PM /4:39 PM MTDLalo
--- NOTE | 2017-05-30 17:07 | ECHRPT ---
Indication: cva/tia CONCLUSIONS Normal left ventricular size. The left ventricular systolic function is low normal with an estimated ejection fraction in the rang e of 50- 55%. The left atrial size is zsue-oo-hisfdlsrmm dilated. 4.9 cm Ifpmu-gq-jeuh mitral valve regurgitation. Moderate thickening of the aortic valve leaflets. Aortic valve area is 0.6 cm. Aortic valve mean gradient is 49 mmHg. Vmax 419 There is mild tricuspid valve regurgitation. The estimated pulmonary arterial pressure is 60.1 mmHg. BP: / HR: Rhythm: MEASUREMENTS (Male / Female) Normal Values Technical Quality:Technically difficult study 2D ECHO LV Diastolic Diameter PLAX 4.2 cm 4.2 - 5.9 / 3.9 - 5.3 cm LV Systolic Diameter PLAX 3.4 cm IVS Diastolic Thickness 1.6 cm 0.6 - 1.0 / 0.6 - 0.9 cm LVPW Diastolic Thickness 1.8 cm 0.6 - 1.0 / 0.6 - 0.9 cm LV Relative Wall Thickness 0.8 RV Internal Dim ED PLAX 2.7 cm LVOT Diameter 2.6 cm M-MODE LA Systolic Diameter MM 4.9 cm LA Ao Ratio MM 1.5 DOPPLER AV Peak Velocity 419.0 cm/s AV Peak Gradient 70.2 mmHg AV Mean Gradient 49.0 mmHg AV Velocity Time Integral 97.6 cm LVOT Peak Velocity 45.1 cm/s LVOT Peak Gradient 0.8 mmHg LVOT Velocity Time Integral 11.0 cm AV Area Cont Eq vti 0.6 cm AV Area Cont Eq pk 0.6 cm Mitral E Point Velocity 76.0 cm/s Mitral A Point Velocity 87.9 cm/s Mitral E to A Ratio 0.9 LV E' Lateral Velocity 6.8 cm/s Mitral E to LV E' Lateral Ratio 11.1 LV E' Septal Velocity 5.9 cm/s Mitral E to LV E' Septal Ratio 13.0 TR Peak Velocity 354.0 cm/s TR Peak Gradient 50.1 mmHg Right Atrial Pressure 10.0 mmHg Pulmonary Artery Systolic Pressu 60.1 mmHg Right Ventricular Systolic Press 60.1 mmHg FINDINGS LEFT VENTRICLE Normal left ventricular size. The left ventricular systolic function is low normal with an estimated ejection fraction in the rang e of 50- 55%. RIGHT VENTRICLE Normal right ventricular size and systolic function. LEFT ATRIUM The left atrial size is pjbv-ul-utqafflqvu dilated. 4.9 cm RIGHT ATRIUM The right atrial size is normal. ATRIAL SEPTUM Normal atrial septal thickness without atrial level shunting by limited color doppler interrogation. AORTA The aortic root and proximal ascending aorta are normal in size on limited imaging. MITRAL VALVE Structurally normal mitral valve. Wgmtq-so-uzvh mitral valve regurgitation. AORTIC VALVE Moderate thickening of the aortic valve leaflets. Aortic valve area is 0.6 cm. Aortic valve mean gradient is 49 mmHg. Vmax 419 TRICUSPID VALVE Structurally normal tricuspid valve. There is mild tricuspid valve regurgitation. The estimated pulmonary arterial pressure is 60.1 mmHg. PULMONARY VALVE No pulmonary valve regurgitation or stenosis. VESSELS The inferior vena cava is normal in size. PERICARDIUM No pericardial effusion. Dash Hubbard MD (Electronically Signed) Final Date:30 May 2017 17:06
--- NOTE | 2017-05-30 17:16 | MB ---
cc: JIN BUTLER MD DATE OF CONSULTATION 05/30/17 REASON FOR CONSULTATION Repeated transient ischemic attack stroke, left carotid artery stenosis. HISTORY OF PRESENT ILLNESS This 76-year-old male started slurring speech at home and was transferred to our institution, worked up and, on the workup, was found to have common carotid artery stenosis among other things. Question arises about issues related to this and possible vascular involvement. PAST MEDICAL HISTORY 1. Hypertension, 2. Coronary artery disease with previous surgery, thoracotomy and coronary artery bypass graft as well as stent placements. 3. Repeated TIAs 4. Diabetes mellitus PAST SURGICAL HISTORY 1. Cholecystectomy 2. Thoracotomy with coronary artery bypass graft, 3. Repeated cardiac stent placements 4. Bilateral carotid artery stent placements several peripheral vascular stent placements, but I do not have a CTA with a runoff to see this. MEDICATIONS Can be found on the record. SOCIAL HISTORY The patient used to smoke but does not do it anymore. PHYSICAL EXAMINATION GENERAL: A pleasant 76-year-old gentleman awake, alert, oriented HEENT: Normocephalic. No trauma to the head. Pupils equally reactive. Extraocular muscles intact. NECK: Supple, bilateral carotid pulses and bilateral faint carotid bruits, probably due to the stents placed in the internal carotids. HEART: Regular rhythm. There is a prominent systolic murmur at the second intercostal space right. There is a midline healed scar from sternotomy. RESPIRATORY: Bilateral breath sounds decreased lung cortez consistent with mild to moderate COPD. ABDOMEN: Soft. Active bowel sounds. EXTREMITIES: The patient has no palpable femoral pulses, but they are dopplerable. He has dopplerable popliteal pulses and dopplerable dorsalis pedis. I do not see any posterior tibial pulses. Feet are however warm. NEUROLOGIC: The patient is grossly intact. Any slurring of speech that might have been present is now gone. IMPRESSION/RECOMMENDATIONS I reviewed laboratory and diagnostic procedures. 1. The gentleman had previous repeated strokes obviously, old ones, and at this time I do not see any acute stroke. The patient has bilateral carotid stents placed. Question arises of common carotid artery stenosis on the left. CTA of the neck indeed shows near interruption of the common carotid artery. This gentleman has, by the way, left aortic arch. In other words, the subclavian and carotid arteries originate straight from the arch and, by the way, he also has left subclavian stent there. While on the CTA of the neck, this appears to be as a stenosis of common carotid artery just above the sternum, comparing this to the ultrasound of the carotids, there is absolutely nothing there so this is an artifact. This gentleman does not have a common carotid artery stenosis, but has all the other above-mentioned issues. From vascular surgery standpoint, there is nothing to add to care right now and he can be taken care of by cardiac surgeons and snapper on as deemed clinically appropriate. I thank you very much for referral. Critical care 40 minutes. Jin TOMLINSON/ /4:43 PM /5:02 PM MTDD
[2017-05-30 20:26] VITALS: BP 172/83; PULSE 79; RESP 18; TEMP 97.5; O2SAT 98
[2017-05-30] MEDS ORDERED: PRAVASTATIN SOD 40 MG TAB PO SCH (21:00)
[2017-05-31 00:15] VITALS: BP 192/92; PULSE 78; RESP 18; TEMP 97.3; O2SAT 97
--- NOTE | 2017-05-31 00:48 | EKG ---
Date Performed: 05/29/2017 Time Performed: 19:52:47 PTAGE: 76 years EKG: Sinus rhythm POSSIBLE LEFT ATRIAL ENLARGEMENT NONSPECIFIC T-WAVE ABNORMALITY BORDERLINE ECG NO PREVIOUS TRACING DOCTOR: Kaiden Robin Interpretating Date/Time 05/31/2017 00:46:25
[2017-05-31 04:21] VITALS: BP 196/91; PULSE 78; RESP 18; TEMP 97.4; O2SAT 98
[2017-05-31 08:00] VITALS: BP 157/67; PULSE 82; RESP 17; TEMP 96; O2SAT 98
--- NOTE | 2017-05-31 08:26 | HHI.PR ---
Review/Management Diagnosis/Plan: (1) Left carotid artery stenosis ICD Codes: I65.22 - Occlusion and stenosis of left carotid artery Status: Acute Plan: carotid u/'s reviewed; no significant occlusion reviewed vascular surgery recs- no role for surgery recs change from plavix to aggrenox. s/b d/w pt elevated BP. need better control of this f/u with his crop and soil technician Dr. Chacon for loop recorder if recurrent episode then will need to consider coumadin bp/lipid/glucose control f/u with us in 1-2 weeks; outpatient sleep study with us (2) TIA (transient ischemic attack) ICD Codes: G45.9 - Transient cerebral ischemic attack, unspecified Status: Acute Plan: CT brain was NAICP CTA head and neck reviewed, severe left common carotid stenosis Pt is on statin with LDL in 30s EEG pending (3) History of coronary artery disease ICD Codes: Z86.79 - Personal history of other diseases of the circulatory system Status: Chronic Plan: on plavix and aspirin, hx of stenting (4) Renal insufficiency ICD Codes: N28.9 - Disorder of kidney and ureter, unspecified Status: Acute Plan: monitor s/p angiograms, followed by Dr. Murillo (5) HTN (hypertension) ICD Codes: I10 - Essential (primary) hypertension Status: Chronic Plan: permissible htn acutely monitor parameters Daily Summary d/w PA agree with above Subjective Subjective Comments No acute events reported No headache No chest pain No dyspnea Active Medications Current Medications Medications (Trade) Dose Ordered Sig/Carlee Route Start Time Stop Time Status Last Admin Sodium Chloride 1,000 ml @ 70 mls/hr [id number] IV 05/29/17 20:30 05/30/17 10:48 Heparin Sodium/ Dextrose 250 ml @ 12 mls/hr TITRATE PRN IV 05/29/17 21:00 05/29/17 21:10 (NS Flush) 2 ml BID IV FLUSH 05/30/17 09:00 05/30/17 22:28 (NS Flush) 2 ml UNSCH PRN IV FLUSH 05/29/17 21:30 (Vasotec Inj) 1.25 mg Q4H PRN IV PUSH 05/29/17 21:30 05/30/17 17:23 (Pravachol) 40 mg HS PO 05/30/17 21:00 05/30/17 22:28 (NovoLOG SUPPLEMENTAL SCALE) 1 ACHS SQ 05/30/17 08:00 (D50w (Vial) Inj) 50 ml UNSCH PRN IV PUSH 05/29/17 21:30 (Glucagon Inj) 1 mg UNSCH PRN OTHER 05/29/17 21:30 Allergies Allergies Coded Allergies No Known Allergies (Verified Allergy, Unknown, 05/29/17) MRI PRECAUTION (Verified Adverse Reaction, Severe, Pacemaker, not Biotronik or Medtronic. 05/30/17 LRS, 05/30/17) Review of Systems All other ROS: ROS reviewed as documented in chart Exam I&O / VS Vital Signs Date Time Temp Pulse Resp B/P (MAP) Pulse Ox O2 Delivery O2 Flow Rate FiO2 05/31/17 04:21 97.4 78 18 196/91 (126) 98 05/31/17 00:15 97.3 78 18 192/92 (125) 97 05/30/17 20:26 97.5 79 18 172/83 (112) 98 05/30/17 16:00 98.3 76 18 223/105 (144) 96 05/30/17 11:39 96.9 74 18 230/102 (144) 99 General: Alert and Oriented, No acute distress Eye: PERRL, EOMI Respiratory: Non-labored respirations, Symmetrical expansion Cardiology: Normal rate Neurologic: Alert, Oriented, Normal sensory, Normal motor, No focal defects, CN II-XII intact, Normal DTR's Psychiatric: Cooperative, Appropriate mood & affect, Normal judgement Objective Micro and Labs Laboratory Tests Test 05/30/17 11:40 Activated Partial Thromboplast Time 42.2 Problem Qualifiers (1) TIA (transient ischemic attack): Qualified Codes: G45.9 - Transient cerebral ischemic attack, unspecified Juan Manuel Verma MD May 31, 2017 08:26
[2017-05-31] MEDS ORDERED: DIPYRIDAMOLE/ASPIRIN 200 MG/25 MG CAP PO SCH (09:00)
[2017-05-31] MEDS ORDERED: ASPIRIN EC 81 MG TABEC PO SCH (09:00)
[2017-05-31 09:06] LABS: INTERNATIONAL NORMALIZED RATIO 1.1 RATIO; PROTHROMBIN TIME - PATIENT 11.5 SEC (9.8-11.6)
[2017-05-31 09:10] LABS: BICARBONATE 25.7 MEQ/L (21.0-32.0); CALCIUM 9.2 MG/DL (8.5-10.1); CREATININE 1.72 MG/DL (0.60-1.30)
--- NOTE | 2017-05-31 11:03 | PD.CAR.PN ---
CVT Progress Note Subjective/Hospital Course: Referral received Full consult dictated Balwinder Kristian 05/31/17 As noted in my original consult I reviewed the radiologic studies in the x-ray department and discussed it with the patient. The gentleman had previous repeated strokes obviously, old ones, and at this time I do not see any acute stroke. The patient has bilateral carotid stents placed. Question arises of common carotid artery stenosis on the left.CTA of the neck indeed shows near interruption of the common carotid artery. This gentleman has, by the way, left aortic arch. In other words, the subclavian and carotid arteries originate straight from the arch and, by the way, he also has left subclavian stent there. While on the CTA of the neck, this appears to be as a stenosis of common carotid artery just behind the sternum, comparing this to the ultrasound of the carotids, there is absolutely nothing there so this is an artifact. This gentleman does not have a common carotid artery stenosis, but has all the other above-mentioned issues. From vascular surgery standpoint, there is nothing to add to care right now and he can be taken care of by cardiac surgeons and manager sound as deemed clinically appropriate. As far as the legs are concerned patient had numerous stents placed at [facility] and currently has no acute vascular insufficiency that would require in-depth workup of this right now. Nothing further to add from vascular point Objective: Vital Signs Date Time Temp Pulse Resp B/P (MAP) Pulse Ox O2 Delivery O2 Flow Rate FiO2 05/31/17 08:00 96.0 82 17 157/67 (97) 98 05/31/17 04:21 97.4 78 18 196/91 (126) 98 05/31/17 00:15 97.3 78 18 192/92 (125) 97 05/30/17 20:26 97.5 79 18 172/83 (112) 98 05/30/17 16:00 98.3 76 18 223/105 (144) 96 05/30/17 11:39 96.9 74 18 230/102 (144) 99 Labs: Laboratory Tests Test 05/31/17 07:54 Prothrombin Time 11.5 SEC (9.8-11.6) Prothromb Time International Ratio 1.1 RATIO Activated Partial Thromboplast Time 50.9 SEC (24.3-30.1) Blood Urea Nitrogen 25 MG/DL (7-18) Creatinine 1.72 MG/DL (0.60-1.30) Random Glucose 110 MG/DL (74-106) Calcium Level 9.2 MG/DL (8.5-10.1) Sodium Level 139 MEQ/L (136-145) Potassium Level 4.3 MEQ/L (3.5-5.1) Chloride Level 107 MEQ/L (98-107) Carbon Dioxide Level 25.7 MEQ/L (21.0-32.0) Anion Gap 6 MEQ/L (5-15) Estimat Glomerular Filtration Rate 39 ML/MIN (>89) Result Diagram: 05/29/17 1915 05/31/17 0754 Jin Winston MD May 31, 2017 11:03
[2017-05-31] MEDS ORDERED: AGGR20025 PO (11:20)
[2017-05-31] MEDS ORDERED: LISI40TA PO (11:22)
--- NOTE | 2017-05-31 16:37 | HHI.DS ---
Discharge Summary Admission Date May 29, 2017 at 21:18 Discharge Date: May 31, 2017 Admitting Diagnosis stroke alert; tia (1) CVA (cerebral vascular accident) ICD Code: I63.9 - Cerebral infarction, unspecified Diagnosis: Principal (2) Renal insufficiency ICD Code: N28.9 - Disorder of kidney and ureter, unspecified Diagnosis: Secondary (3) HTN (hypertension) ICD Code: I10 - Essential (primary) hypertension Diagnosis: Secondary Status: Chronic (4) DM (diabetes mellitus) ICD Code: E11.9 - Type 2 diabetes mellitus without complications Diagnosis: Secondary Procedures None Brief History - From Admission This is a 76-year-old male with PMH of HTN, CAD, TIA, Aortic Valve Stenosis pending AVR, DM and CKD who was brought to the ER by EMS as a Stroke Alert. Per , they were having dinner when pt had acute episode of dysarthria and garbled speech. No reported facial droop or weakness per . Previous h/o similar episodes in the past w/ TIAs. states speech almost back to baseline. On arrival, BP 188/97, HR 68, O2 sat 98% on RA, Afebrile. CBC essentially unremarkable. Creatinine 2.0, labs for comparison. CT Head with severe periventricular and subcortical white matter disease, no acute infarct or hemorrhage noted. CXR with left perihilar infiltrate. CTA Head with no acute findings. CTA Neck severe focal stenosis of left mid common carotid artery. Dr. Leon consulted by ER physician, pt not TPA candidate, recommended Heparin gtt for anticoagulation. Pt follows w/ Representative Personal Service Dr. Chacon and Professor Of Fine Art Dr. Murillo. CBC/BMP: 05/29/17 1915 05/31/17 0754 Significant Findings Laboratory Tests Test 05/29/17 19:15 05/30/17 05:30 05/30/17 11:40 05/31/17 07:54 Red Blood Count 3.88 MIL/MM3 (4.50-5.90) Hemoglobin 12.3 GM/DL (13.0-17.0) Bedside Hemoglobin 12.6 G/DL (13.0-17.0) Hematocrit 36.7 % (39.0-51.0) Bedside Hematocrit 37.0 % (39.0-51.0) Neutrophils (%) (Auto) 72.6 % (16.0-70.0) Prothrombin Time 12.0 SEC (9.8-11.6) Fibrinogen 413 mg/dL (227-377) Bedside Blood Urea Nitrogen 29 MG/DL (5-21) Bedside Creatinine 2.0 MG/DL (0.6-1.3) Activated Partial Thromboplast Time 52.6 SEC (24.3-30.1) 42.2 SEC (24.3-30.1) 50.9 SEC (24.3-30.1) Cholesterol Level 98 MG/DL (120-200) Blood Urea Nitrogen 25 MG/DL (7-18) Creatinine 1.72 MG/DL (0.60-1.30) Random Glucose 110 MG/DL (74-106) Estimat Glomerular Filtration Rate 39 ML/MIN (>89) PE at Discharge GENERAL: Pleasant elderly white male in no acute distress. HEENT: PERRLA, EOMI. No scleral icterus or conjunctival pallor. No slurring of speech. CARDIOVASCULAR: Positive for musical murmur, irregular rhythm, normal rate. RESPIRATORY: No obvious rhonchi or wheezing. Clear to auscultation. Breath sounds equal bilaterally. GASTROINTESTINAL: Abdomen soft, non-tender, nondistended. BS normal. MUSCULOSKELETAL: Extremities without clubbing, cyanosis, or edema. No obvious deformities. NEUROLOGICAL: Awake, alert and oriented x4. No cranial nerve deficits. No focal deficits, moves upper extremities and lower extremities without any weakness. Hospital Course Mr. Preston is a 76-year-old male. He was admitted secondary to CVA symptoms which included dysarthria and speech impediment. Imaging was done of his brain here and he showed no evidence of CVA. TIAs his diagnosis. He is transitioned from Plavix to Aggrenox by neurology. Cleared by neurology for discharge. Medically stable for discharge to home today. He also has had an adjustment in his blood pressure medications while here. Medically clear for discharge home today. Pt Condition on Discharge: Stable Discharge Disposition: Discharge Home Discharge Time: <= 30 minutes Discharge Instructions DIET: Follow Instructions for: As Tolerated, No Restrictions Speech Therapy-Diet Recommends: Regular Additional Diet Instructions: Low Salt Activities you can perform: Regular-No Restrictions Follow up Referrals: Neurology - As Per Protocol with Juan Manuel Verma MD PCP Follow-up - 2 Weeks New Medications: Lisinopril (Lisinopril) 40 Mg Tab 40 MG PO DAILY for Blood Pressure Management, #30 TAB 0 Refills Dipyridamole-Aspirin (Aggrenox) 200-25 Mg Cap 1 CAP PO BID for Blood Clot Prevention, #60 CAP Continued Medications: Aspirin (Aspirin) 325 Mg Tab 325 MG PO DAILY, #30 TAB 0 Refills Atorvastatin (Lipitor) 40 Mg Tab 40 MG PO HS for Cholesterol Management, #30 TAB 0 Refills Cetirizine (Cetirizine) 10 Mg Chew 10 MG CHEW DAILY for Allergies, TAB 0 Refills Gabapentin (Gabapentin) 300 Mg Cap 300 MG PO HS, #30 CAP 0 Refills Glimepiride (Glimepiride) 2 Mg Tab 2 MG PO DAILY for Blood Sugar Management, #30 TAB 0 Refills Take with breakfast or first main meal Isosorbide Mononitrate (Isosorbide Mononitrate) 20 Mg Tab 60 MG PO DAILY for Prevent Chest Pain, #60 TAB 0 Refills Take 2 doses 7 hours apart. Meclizine (Meclizine) 25 Mg Tab 25 MG PO DIRECTED PRN for VERTIGO, TAB 0 Refills Nitroglycerin SL (Nitrostat SL) 0.4 Mg Subl 0.4 MG SL DIRECTED PRN for CHEST PAIN, #100 TAB.SL 0 Refills 1 tablet under the tongue as needed for chest pain. Repeat every 5 minutes for a total of 3 DOSES or call 911 if NO relief. Pantoprazole (Pantoprazole) 40 Mg Tab 40 MG PO DAILY for Reflux, #30 TAB 0 Refills Ranolazine ER 12 HR (Ranexa ER 12 HR) 500 Mg Tab 500 MG PO DAILY for Chest Pain, #60 TAB 0 Refills Discontinued Medications: Clopidogrel (Plavix) 75 Mg Tab 75 MG PO DAILY for Blood Clot Prevention, #30 TAB 0 Refills Lisinopril (Lisinopril) 20 Mg Tab 20 MG PO DAILY, #30 TAB 0 Refills Jacob Mon MD May 31, 2017 16:37
== END 2017-05-31 12:19 | disposition home or self-care (01) | DRG 69 ==
LOC: NEPC 19:07 → NEDA 21:18 → N06B 22:12
PROVIDERS: ADMIT Hospitalist; ATTEND Hospitalist
DX: G45.9 Transient cerebral ischemic attack, unspecified (principal); N18.4 Chronic kidney disease, stage 4 (severe); I35.0 Nonrheumatic aortic (valve) stenosis; E11.22 Type 2 diabetes mellitus with diabetic chronic kidney disease; I12.9 Hypertensive chronic kidney disease with stage 1 through stage 4 chronic kidney disease, or unspecified chronic kidney disease; Z86.73 Personal history of transient ischemic attack (TIA), and cerebral infarction without residual deficits; I65.22 Occlusion and stenosis of left carotid artery; I25.10 Atherosclerotic heart disease of native coronary artery without angina pectoris; Z95.1 Presence of aortocoronary bypass graft; Z95.5 Presence of coronary angioplasty implant and graft; Z87.891 Personal history of nicotine dependence
CPT/HCPCS: 70450; 70496; 70498; 71045; 80048; 80061; 82550; 82948; 83036; 84484; 85025; 85384; 85610; 85730; 86850; 86900; 86901; 93005; 93306; 93880; 95819; 96374; J1644; J2270; J2405; J7030; Q9967